=== PATIENT | female | born 1965 | race American Indian/Alaskan Native ===

== ENCOUNTER 2020-11-22 17:01 | Emergency (ER) | payer MEDICARE ==
[2020-11-22 17:08] VITALS: BP 140/86
[2020-11-22] MEDS ORDERED: predniSONE 50 MG TAB PO ONE (17:11)
--- NOTE | 2020-11-22 17:14 | Emergency Department Report ---
ED Allergic Reaction HPI - General Chief complaint: Allergic Reaction Stated complaint: ALLERGIC REACTION Time Seen by Provider: 11/22/20 17:07 Source: patient Mode of arrival: Ambulatory Limitations: No Limitations - History of Present Illness Initial Comments: Patient presents to the ER today with complaints of having allergic reaction to hair dye (rinse). Patient states that she had a rinse putting her hair this past tuesday. She states that she was fine after having the rinse put in, she was also fine on but then Tuesday when she started to sweat she started having swelling around her hairline. She states that the swelling has since spread to mainly around the left eye, and ear area. She states that it does not really itch just feels swollen. She also reports some mild sensation of itching in the left side of her neck. She reports no lip or throat or tongue swelling. Reports no chest pain or shortness of breath or wheezing. She denies any extremity or trunk swelling, rash or itching. She states that she has had similar allergic reaction before but it was too black dye. She states that this time the hairdresser used a brown dye but she is not sure what brand. MD Complaint: allergic reaction, facial swelling -: Gradual - Related Data Previous Rx's Medication Instructions Recorded Last Taken Type diphenhydrAMINE [Benadryl CAP] 25 - 50 mg PO Q6HR PRN #30 capsule 11/22/20 Unknown Rx predniSONE [Deltasone] 50 mg PO DAILY #5 tablet 11/22/20 Unknown Rx Allergies Allergy/AdvReac Type Severity Reaction Status Date / Time dye Allergy Rash Uncoded 11/22/20 17:05 ED Review of Systems ROS: Stated complaint: ALLERGIC REACTION Other details as noted in HPI Comment: All other systems reviewed and negative Constitutional: denies: chills, fever Eyes: denies: eye pain, eye discharge, vision change ENT: denies: ear pain, throat pain Respiratory: denies: cough, shortness of breath, SOB with exertion, SOB at rest, wheezing Cardiovascular: as per HPI. denies: chest pain, palpitations, dyspnea on exertion, orthopnea, edema, syncope, paroxysmal nocturnal dyspnea Gastrointestinal: denies: abdominal pain, nausea, vomiting, diarrhea, constipation, hematemesis, melena, hematochezia Genitourinary: denies: urgency, dysuria, discharge Skin: rash, other (Swelling). denies: pruritus Neurological: denies: headache, weakness, paresthesias Psychiatric: denies: anxiety, depression Hematological/Lymphatic: denies: easy bleeding, easy bruising ED Past Medical Hx - Past Medical History Previous Medical History?: Yes Hx Asthma: Yes - Surgical History Past Surgical History?: Yes Additional Surgical History: Back surgery - Medications Home Medications: Home Medications Medication Instructions Recorded Confirmed Last Taken Type diphenhydrAMINE [Benadryl CAP] 25 - 50 mg PO Q6HR PRN #30 capsule 11/22/20 Unknown Rx predniSONE [Deltasone] 50 mg PO DAILY #5 tablet 11/22/20 Unknown Rx ED Physical Exam - General Limitations: No Limitations General appearance: alert, in no apparent distress - Head Head exam: Present: atraumatic, normocephalic, other (Erythematous, maculopapular urticarial rash noted around the hairline including the external ear; there is no drainage from it. No tenderness to palpation.) - Eye Eye exam: Present: normal appearance, PERRL, EOMI, periorbital swelling (Very mild, mainly around left eye). Absent: periorbital tenderness Pupils: Present: normal accommodation - ENT ENT exam: Present: normal exam, normal orophraynx, mucous membranes moist, other (No lip or tongue swelling or throat swelling noted.) - Neck Neck exam: Present: normal inspection, full ROM. Absent: tenderness, lymphadenopathy - Respiratory Respiratory exam: Present: normal lung sounds bilaterally. Absent: respiratory distress, rales, rhonchi - Cardiovascular Cardiovascular Exam: Present: regular rate, normal rhythm, normal heart sounds - Back Exam Back exam: Present: normal inspection - Neurological Exam Neurological exam: Present: alert, oriented X3, CN II-XII intact, normal gait - Psychiatric Psychiatric exam: Present: normal affect, normal mood ED Course Vital Signs 11/22/20 17:07 Temperature 98.7 F Pulse Rate 73 Respiratory 18 Rate Blood Pressure 140/86 O2 Sat by Pulse 96 Oximetry ED Medical Decision Making - Medical Decision Making Patient presents to the ER today with complaints of having allergic reaction to hair dye (rinse). Patient states that she had a rinse putting her hair this past tuesday. She states that she was fine after having the rinse put in, she was also fine on but then Tuesday when she started to sweat she started having swelling around her hairline. She states that the swelling has since sp read to mainly around the left eye, and ear area. She states that it does not really itch just feels swollen. She also reports some mild sensation of itching in the left side of her neck. She reports no lip or throat or tongue swelling. Reports no chest pain or shortness of breath or wheezing. She denies any extremity or trunk swelling, rash or itching. She states that she has had similar allergic reaction before but it was too black dye. She states that this time the hairdresser used a brown dye but she is not sure what brand. Patient has a contact allergic reaction secondary to hair dye (hair rinse). She denied any respiratory distress. No stridor on exam. She has no tongue or lip swelling. Her airway is intact. She has a normal voice. Her vital signs are stable. She is not toxic or ill-appearing. Discussed suspected diagnosis and treatment plan with patient. Patient expressed understanding of instructions and agree with plan. Patient was stable at time of discharge. Critical care attestation.: If time is entered above; I have spent that time in minutes in the direct care of this critically ill patient, excluding procedure time. ED Disposition Clinical Impression: Contact allergic reaction Disposition: DC-01 TO HOME OR SELFCARE Is pt being admited?: No Does the pt Need Aspirin: No Condition: Stable Instructions: Contact Dermatitis, [id number] Additional Instructions: Take the prednisone as prescribed. Take the Benadryl as prescribed. Try not to operate equipment or drive while taking the Benadryl. Also you can use the hydrocortisone cream but do not use it on your face. Wash your hair with a gentle shampoo to rinse out the remaining dye. Follow-up closely with your primary care doctor next week. Return to the ER if any symptoms worsens or changes in any way. Prescriptions: diphenhydrAMINE [Benadryl CAP] 25 - 50 mg PO Q6HR PRN #30 capsule PRN Reason: itching/swelling predniSONE [Deltasone] 50 mg PO DAILY #5 tablet Referrals: ANISH SMITH MD [Staff Physician] - 3-5 Days Time of Disposition: 17:14
== END 2020-11-22 17:26 | disposition home or self-care (01) ==
LOC: ED 17:01
DX: T78.49XA Other allergy, initial encounter (principal); J45.909 Unspecified asthma, uncomplicated; Z98.890 Other specified postprocedural states; Z79.899 Other long term (current) drug therapy; Z88.8 Allergy status to other drugs, medicaments and biological substances; X58.XXXA Exposure to other specified factors, initial encounter
CPT/HCPCS: 99282; J7512